=== PATIENT | female | born 1990 | race Caucasian/White ===

== ENCOUNTER 2020-03-27 12:46 | Emergency (ER) | payer SELFPAY ==
[2020-03-27] MEDS ORDERED: IPRATROPIUM/ALBUTEROL 0.5-2.5 MG/3 ML AMPUL NEB ONE (14:57)
[2020-03-27] MEDS ORDERED: METHYLPREDNISOLONE INJ 125 MG/2 ML SDV IV ONE (14:57)
--- NOTE | 2020-03-27 15:01 | ER Document Report ---
ED Medical Screen (RME) - General Stated Complaint: COUGH,SHORT OF BREATH,FEVER Time Seen by Provider: 03/27/20 14:48 Notes: Patient is a 30-year-old female comes emergency room with a 48-hour onset of cough congestion chills and fever and increasing shortness of breath. Patient denies any past medical history no history of asthma. She does not smoke. She has no medical problems and currently on no medications. She states approximately 48 hours ago she started having a little bit of wheeze and has progressively gotten worse. She is now progressed to where she is having a difficult time taking a deep breath and she has been chilling. She does not taken her temperature with a thermometer but felt feverish. She denies any known contact with any coronavirus people and states that they have been basically quarantined in their house she does not go up very often and kids at home school. Her last menstrual period is currently in progress. She does not smoke drink or do drugs. She does not work outside the home. Vital signs here in the ER showed a temp of 97.4, heart rate of 102.0 blood pressure 118/51 and a saturation of 95% on room air. Examination: Patient is a well-nourished well-developed 30-year-old female no apparent distress on examination today. Cardiac: Patient is slightly tachycardic at 102 bpm on monitor no murmurs auscultated. Lungs: Bilateral breath sounds that are decreased throughout patient has inspiratory and expiratory wheeze noted. Abdomen: Bowel sounds present all 4 quads nontender to palpate. Next I have greeted and performed a rapid initial assessment of this patient. A comprehensive ED assessment and evaluation of the patient, analysis of test results and completion of the medical decision making process will be conducted by additional ED providers. Dictation of this chart was performed using voice recognition software; therefore, there may be some unintended grammatical errors. Physical Exam - Vital signs Vitals: Temp Pulse Resp BP Pulse Ox 97.4 F 102 H 16 118/51 L 95 03/27/20 13:27 03/27/20 13:27 03/27/20 13:03/27/20 13:03/27/20 13: Course - Vital Signs Vital signs: Temp Pulse Resp BP Pulse Ox 97.4 F 102 H 16 118/51 L 95 03/27/20 13:27 03/27/20 13:27 03/27/20 13:27 03/27/20 13:27 03/27/20 13:27
--- NOTE | 2020-03-27 15:34 | RADIOLOGY REPORT (SQ) ---
EXAM DESCRIPTION: CHEST SINGLE VIEW IMAGES COMPLETED DATE/TIME: 03/27/2020 3:23 pm REASON FOR STUDY: wheezing/fever COMPARISON: None. EXAM PARAMETERS: NUMBER OF VIEWS: One view. TECHNIQUE: Single frontal radiographic view of the chest acquired. RADIATION DOSE: NA LIMITATIONS: None. FINDINGS: LUNGS AND PLEURA: No opacities, masses or pneumothorax. No pleural effusion. MEDIASTINUM AND HILAR STRUCTURES: No masses. Contour normal. HEART AND VASCULAR STRUCTURES: Heart normal in size. Normal vasculature. BONES: No acute findings. HARDWARE: None in the chest. OTHER: No other significant finding. IMPRESSION: NO ACUTE RADIOGRAPHIC FINDING IN THE CHEST. TECHNICAL DOCUMENTATION: JOB ID: [id number] 2010 [employer]- All Rights Reserved Reading location - IP/workstation name: [email or web address]
[2020-03-27 17:54] VITALS: BP 132/75
== END 2020-03-27 18:28 | disposition left against medical advice (07) ==
LOC: ER 12:46
DX: R05 Cough (principal); R06.02 Shortness of breath; R06.2 Wheezing; R68.83 Chills (without fever); R00.0 Tachycardia, unspecified; Z53.20 Procedure and treatment not carried out because of patient's decision for unspecified reasons
CPT/HCPCS: 71045; 99281